=== PATIENT | female | born 1950 | race Caucasian/White ===

== ENCOUNTER 2017-01-29 07:30 | Inpatient (IN) | payer MEDICARE, OTHER ==
[~2017-01-29] VITALS: Ht 157.5 cm; Wt 72.6 kg
--- NOTE | ~2017-01-29 | HP ---
History And Physical [place] [id number] [facility] [place]. [address] NAME: THERESA PIERRE : 50 STATUS : ADM IN [facility]#: [id number] AGE: 66 ADM/REG DATE : 01/29/17 MR#: [id number] REPORT SERV DATE: 01/29/17 DICTATED BY: PETE MAIN JR. 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 She has done well, is being followed, but developed a recent episode of syncope that was fairly profound at home. She was transported with ambulance to the emergency room. She has been stable since, although her history is that of 24 hours of feeling sickly. Her drainage from her wounds have been monitored. She has had some drainage from the wounds bilaterally, which is more so on the right, which is the nonmalignant side. When she fell, she did have injury to her lower back and right hip, but evaluation to the emergency room has been negative. No cough noted. Her breast pain has been not significant and is being well controlled. PAST MEDICAL HISTORY/SERIOUS ILLNESSES: Diabetes, hypertension, underlying psychiatric disorder noted. PREVIOUS SURGERIES: Multiple superficial melanomas, arthroscopy of knee, previous back surgery, cholecystectomy, appendectomy. MEDICATIONS: See associated list. ALLERGIES: NONE OTHER THAN NAUSEA WITH TETRACYCLINE. FAMILY HISTORY: Noncontributory. SOCIAL HISTORY: Patient smokes and drinks. PHYSICAL EXAMINATION: GENERAL: Patient is well developed and obese. Patient in no distress. She is alert and oriented. VITAL SIGNS: The vital signs have been stable. CARDIORESPIRATORY: Regular rate and rhythm with somewhat of a tachycardia. Lungs are clear per evaluation by the emergency room physician. BREASTS: Bilateral breast exam shows reconstructive breast with minimal erythema of the inferior wound on the left. No significant erythema around the drain, although the drain on the left is producing considerable amount of serosanguineous fluid. On the right, there is separation of the wound inferiorly with drainage. Minimal drainage from the Federico-Bearden, but does perhaps have some more suspicious fluid within it. Minimal erythema even though the open wound is noted. ABDOMEN: Negative. EXTREMITIES AND BACK: Negative exam as per ER physician. History And Physical [address] [address] NAME: THERESA PIERRE : 50 STATUS : ADM IN [facility]#: [id number] AGE: 66 ADM/REG DATE : 01/29/17 MR#: [id number] REPORT SERV DATE: 01/29/17 DICTATED BY: PETE MAIN JR. DATE: 01/29/17 REPORT STATUS : Draft TRANSCRIBED BY: JAXSON DATE: 01/29/17 LABORATORY DATA: Elevated white count noted. IMPRESSION: Postoperative wound infection with probable sepsis and syncopal episode. PLAN: The patient will be admitted until wound and infection is under control. /JAXSON Pete Main Jr., M.D. / [id number] CC: Wander Owen Jr., M.D. Mark Brzezienski, M.D.
--- NOTE | ~2017-01-29 | OP ---
Record Of Operation [facility] [address] [place]. [address] NAME: THERESA PIERRE : 50 STATUS : ADM IN PAT#: [id number] AGE: 66 ADM/REG DATE : 01/29/17 MR#: [id number] REPORT SERV DATE: 02/03/17 DICTATED BY: FELI CHANG DATE: 02/03/17 REPORT STATUS : Draft TRANSCRIBED BY: MODAlessandro DATE: 02/03/17 DATE OF PROCEDURE: 02/01/2017 PREOPERATIVE DIAGNOSIS: Bilateral breast seroma, left infection. POSTOPERATIVE DIAGNOSIS: 1. Bilateral breast seroma, left infection. 2. History of breast cancer, surgical absence of the breast and diabetes. PROCEDURE: Bilateral I and D pain with excision and closure of superficial dehiscence right breast. INDICATIONS AND FINDINGS OF THE PROCEDURE: This 66-year-old, obese, diabetic female, status post bilateral mastectomies with immediate breast reconstruction. She has been doing well until about 72 hours ago, when she developed fever and ultimately sepsis emanating from a left breast collection. She is appropriate for the above-described operative intervention. DETAILS OF THE PROCEDURE: The patient was brought to the operating room. After adequate sedation was achieved, she was prepped and draped in usual sterile fashion for the above- described procedure. First on the right, the area of dehiscence approximately 7 cm in length, then at its widest point about 1 cm in width was excised to the level of the underlying well-perfused skin envelope tissue. She has been thoroughly irrigated with Hibiclens solution, and closed with Monocryl and nylon. Incision was then made in the lateral portion of the breast with a knife and dissection was then carried down to the level of the implant pocket with Bovie. The seroma was aspirated away. She was thoroughly irrigated with Hibiclens solution, and then a 15-Chinese drain was placed into the site. This was then closed with multiple layers of Monocryl. Our attention was then turned to the erythematous left breast. Incision was made. Dissection carried down laterally to the level of the underlying fat and then using Bovie cautery to the level of the seroma cavity. This was suctioned away, irrigated with Hibiclens solution, and anemic at 15-Chinese drain was placed. The drain was fixed. She was then closed in multiple layers of Monocryl and remanded to the recovery room in stable condition. All sponge and needle counts were correct. MB/MODL Feli Chang M.D. / [id number] CC: Wander Owen Jr., M.D.
[~2017-01-29 07:30] MED LIST: ALEVE220 MG PO; AT25 PO; CYMBALTA30 PO; INVOKANA100 MG PO; K500 PO; LEVOTHYROXIN50 MCG PO; MIRALAX POWDER1 PKT PO; MOMUD PO; NEUR100 PO; PERCOCET 7.5/321 TAB PO; SEROQUEL50 MG PO; VALIUM10 MG PO; VASOTEC5 PO; VICTOZA18 MG/3 ML SC
[2017-01-29 08:58] LABS: BASOPHILS 0.2 %; BASOPHILS ABSOLUTE 0.03 10/3/uL (0.0-0.16); EOSINOPHILS 0.5 %; EOSINOPHILS ABSOLUTE 0.09 10/3/uL (0.0-0.53); HEMOGLOBIN 12.4 g/dL (12.0-16.0); IMMATURE GRANULOCYTES 0.4 %; IMMATURE GRANULOCYTES ABSOLUTE 0.08 10/3/uL (0.0-0.11); LYMPHOCYTES 4.3 %; LYMPHOCYTES ABSOLUTE 0.78 10/3/uL (0.67-4.30); MEAN CORPUS HGB CONC 33.5 g/dL (32.0-36.0); MEAN CORPUSCULAR HEMOGLOB 29.4 pg (26.0-34.0); MEAN CORPUSCULAR VOLUME 87.7 fL (80-100); MEAN PLATELET VOLUME 8.3 fL (9.2-13.0); MONOCYTES 6.7 %; MONOCYTES ABSOLUTE 1.22 10/3/uL (0.21-1.20); NEUTROPHILS 87.9 %; NEUTROPHILS ABSOLUTE 15.94 10/3/uL (2.02-8.40); PLATELET COUNT 284 10/3/uL (150-400); RBC DISTRIBUTION WIDTH 13.2 % (12.0-16.0); RED CELL COUNT 4.22 10/6/uL (4.0-5.6)
[2017-01-29 08:59] LABS: MANUAL DIFF NO %; WHITE BLOOD CELLS 18.1 10/3/uL (4.5-10.5)
[2017-01-29 09:04] LABS: INTERNATIONAL NORMAL RATI 1.1 UNITS (-); PARTIAL THROMBO TIME 32.9 SEC (22.5-37.2); PROTIME (NOT ORD) 14.3 SEC (12.0-14.5)
[2017-01-29 09:14] LABS: BUN (BLOOD UREA NITROGEN) 11 MG/DL (6-23); CALCIUM, SERUM 8.3 MG/DL (8.5-10.4); CHEST PAIN PROFILE TAT 0 Hrs 21 Mins; CHLORIDE, SERUM 100 MMOL/L (96-112); CO2 (CARBON DIOXIDE) 26 MMOL/L (24-34); GFR AFRICAN AMERICAN 61 ML/MIN (>=60); GFR NON AFRICAN AMERICAN 52 ML/MIN (>=60); GLUCOSE, SERUM 322 MG/DL (60-99); SODIUM, SERUM 135 MMOL/L (135-148); TROPONIN I <0.02 NG/ML (<0.05)
[2017-01-29 09:23] LABS: ASCORBIC ACID (UR NOT ORDER) NEG (NEG); BILIRUBIN, URINE NEGATIVE (NEG); ER URINALYSIS TAT 0 Hrs 11 Mins; KETONE, URINE TRACE MG/DL (NEG); LEUKOCYTE ESTERASE(NOT OR NEG (NEG); NITRITE (URINE) NEG (NEG); WBC (NOT ORDERED) (RFLEX) 5 (0-5)
[2017-01-29] MEDS ORDERED: SYN.05 PO (09:58)
[2017-01-29] MEDS ORDERED: INVOKANA100 MG PO (09:58)
[2017-01-29] MEDS ORDERED: ENDOCET1 TA1 PO (09:59)
[2017-01-29] MEDS ORDERED: CYMBALTA30 PO (10:00)
[2017-01-29] MEDS ORDERED: SEROQUEL50 MG PO (10:00)
[2017-01-29] MEDS ORDERED: AT25 PO (10:00)
[2017-01-29] MEDS ORDERED: VALIUM10 MG PO (10:01)
[2017-01-29] MEDS ORDERED: VICTOZA18 MG/3 ML SC (10:01)
[2017-01-29] MEDS ORDERED: VASOTEC5 PO (10:02)
[2017-01-29] MEDS ORDERED: ASAB PO (10:03)
[2017-01-29] MEDS ORDERED: MIRALAX POWDER1 PKT PO (10:03)
[2017-01-29] MEDS ORDERED: UNISOM25 MG PO (10:04)
[2017-01-29 10:37] LABS: LACTATE 2.4 MMOL/L (0.3-2.4)
[2017-01-30 06:08] LABS: BASOPHILS 0.2 %; BASOPHILS ABSOLUTE 0.04 10/3/uL (0.0-0.16); EOSINOPHILS 0.6 %; EOSINOPHILS ABSOLUTE 0.11 10/3/uL (0.0-0.53); HEMOGLOBIN 10.3 g/dL (12.0-16.0); IMMATURE GRANULOCYTES 1.1 %; MANUAL DIFF NO %; MEAN CORPUS HGB CONC 33.2 g/dL (32.0-36.0); MEAN CORPUSCULAR HEMOGLOB 29.2 pg (26.0-34.0); MEAN CORPUSCULAR VOLUME 87.8 fL (80-100); MEAN PLATELET VOLUME 8.7 fL (9.2-13.0); MONOCYTES ABSOLUTE 1.58 10/3/uL (0.21-1.20); NEUTROPHILS 81.1 %; NEUTROPHILS ABSOLUTE 14.24 10/3/uL (2.02-8.40); PLATELET COUNT 273 10/3/uL (150-400); RBC DISTRIBUTION WIDTH 13.7 % (12.0-16.0); RED CELL COUNT 3.53 10/6/uL (4.0-5.6); WHITE BLOOD CELLS 17.6 10/3/uL (4.5-10.5)
[2017-01-30 06:26] LABS: BUN (BLOOD UREA NITROGEN) 17 MG/DL (6-23); CALCIUM, SERUM 7.7 MG/DL (8.5-10.4); CHLORIDE, SERUM 104 MMOL/L (96-112); CO2 (CARBON DIOXIDE) 24 MMOL/L (24-34); GFR AFRICAN AMERICAN 45 ML/MIN (>=60); GFR NON AFRICAN AMERICAN 39 ML/MIN (>=60); GLUCOSE, SERUM 152 MG/DL (60-99); PHOSPHORUS, SERUM 3.2 MG/DL (2.5-4.5); SODIUM, SERUM 138 MMOL/L (135-148)
[2017-01-31 06:36] LABS: BASOPHILS 0.3 %; BASOPHILS ABSOLUTE 0.04 10/3/uL (0.0-0.16); EOSINOPHILS 8.2 %; EOSINOPHILS ABSOLUTE 1.19 10/3/uL (0.0-0.53); HEMATOCRIT 29.5 % (36.0-48.0); HEMOGLOBIN 9.7 g/dL (12.0-16.0); IMMATURE GRANULOCYTES 0.5 %; IMMATURE GRANULOCYTES ABSOLUTE 0.07 10/3/uL (0.0-0.11); LYMPHOCYTES 8.4 %; LYMPHOCYTES ABSOLUTE 1.22 10/3/uL (0.67-4.30); MANUAL DIFF NO %; MEAN CORPUS HGB CONC 32.9 g/dL (32.0-36.0); MEAN CORPUSCULAR VOLUME 88.3 fL (80-100); MEAN PLATELET VOLUME 8.8 fL (9.2-13.0); MONOCYTES 5.6 %; MONOCYTES ABSOLUTE 0.81 10/3/uL (0.21-1.20); NEUTROPHILS ABSOLUTE 11.19 10/3/uL (2.02-8.40); PLATELET COUNT 268 10/3/uL (150-400); RBC DISTRIBUTION WIDTH 14.1 % (12.0-16.0); RED CELL COUNT 3.34 10/6/uL (4.0-5.6); WHITE BLOOD CELLS 14.5 10/3/uL (4.5-10.5)
[2017-01-31 06:58] LABS: ALBUMIN 2.2 G/DL (3.5-5.0); BUN (BLOOD UREA NITROGEN) 7 MG/DL (6-23); CALCIUM, SERUM 8.5 MG/DL (8.5-10.4); CHLORIDE, SERUM 110 MMOL/L (96-112); CO2 (CARBON DIOXIDE) 24 MMOL/L (24-34); CREATININE 0.78 MG/DL (0.55-1.02); GFR AFRICAN AMERICAN 92 ML/MIN (>=60); GFR NON AFRICAN AMERICAN 79 ML/MIN (>=60); GLUCOSE, SERUM 144 MG/DL (60-99); PHOSPHORUS, SERUM 1.7 MG/DL (2.5-4.5); POTASSIUM, SERUM 3.7 MMOL/L (3.5-5.3); SODIUM, SERUM 141 MMOL/L (135-148)
[2017-02-01 05:46] LABS: BASOPHILS 0.4 %; BASOPHILS ABSOLUTE 0.05 10/3/uL (0.0-0.16); EOSINOPHILS 9.9 %; EOSINOPHILS ABSOLUTE 1.24 10/3/uL (0.0-0.53); HEMATOCRIT 27.2 % (36.0-48.0); IMMATURE GRANULOCYTES 0.4 %; IMMATURE GRANULOCYTES ABSOLUTE 0.05 10/3/uL (0.0-0.11); LYMPHOCYTES 9.4 %; LYMPHOCYTES ABSOLUTE 1.18 10/3/uL (0.67-4.30); MEAN CORPUS HGB CONC 33.1 g/dL (32.0-36.0); MEAN CORPUSCULAR VOLUME 87.7 fL (80-100); MEAN PLATELET VOLUME 8.7 fL (9.2-13.0); MONOCYTES 6.3 %; MONOCYTES ABSOLUTE 0.79 10/3/uL (0.21-1.20); NEUTROPHILS 73.6 %; NEUTROPHILS ABSOLUTE 9.23 10/3/uL (2.02-8.40); PLATELET COUNT 290 10/3/uL (150-400); WHITE BLOOD CELLS 12.5 10/3/uL (4.5-10.5)
[2017-02-01 05:49] LABS: MANUAL DIFF NO %
[2017-02-01 06:01] LABS: BUN (BLOOD UREA NITROGEN) 6 MG/DL (6-23); CALCIUM, SERUM 7.8 MG/DL (8.5-10.4); CHLORIDE, SERUM 113 MMOL/L (96-112); CO2 (CARBON DIOXIDE) 23 MMOL/L (24-34); GFR AFRICAN AMERICAN 110 ML/MIN (>=60); GFR NON AFRICAN AMERICAN 95 ML/MIN (>=60); GLUCOSE, SERUM 132 MG/DL (60-99); POTASSIUM, SERUM 3.4 MMOL/L (3.5-5.3); SODIUM, SERUM 145 MMOL/L (135-148)
[2017-02-02 07:44] LABS: BASOPHILS 0.4 %; BASOPHILS ABSOLUTE 0.03 10/3/uL (0.0-0.16); EOSINOPHILS 7.2 %; EOSINOPHILS ABSOLUTE 0.59 10/3/uL (0.0-0.53); HEMATOCRIT 28.8 % (36.0-48.0); HEMOGLOBIN 9.5 g/dL (12.0-16.0); IMMATURE GRANULOCYTES 1.2 %; LYMPHOCYTES 12.3 %; LYMPHOCYTES ABSOLUTE 1.01 10/3/uL (0.67-4.30); MEAN CORPUSCULAR VOLUME 87.8 fL (80-100); MEAN PLATELET VOLUME 8.5 fL (9.2-13.0); MONOCYTES 10.9 %; PLATELET COUNT 271 10/3/uL (150-400); RBC DISTRIBUTION WIDTH 13.5 % (12.0-16.0); RED CELL COUNT 3.28 10/6/uL (4.0-5.6); WHITE BLOOD CELLS 8.2 10/3/uL (4.5-10.5)
[2017-02-02 07:46] LABS: MANUAL DIFF NO %
[2017-02-02 07:57] LABS: BUN (BLOOD UREA NITROGEN) 5 MG/DL (6-23); CALCIUM, SERUM 8.2 MG/DL (8.5-10.4); CHLORIDE, SERUM 108 MMOL/L (96-112); CO2 (CARBON DIOXIDE) 26 MMOL/L (24-34); CREATININE 0.65 MG/DL (0.55-1.02); GFR AFRICAN AMERICAN 107 ML/MIN (>=60); GFR NON AFRICAN AMERICAN 93 ML/MIN (>=60); GLUCOSE, SERUM 151 MG/DL (60-99); POTASSIUM, SERUM 3.7 MMOL/L (3.5-5.3); SODIUM, SERUM 140 MMOL/L (135-148)
[2017-02-03 05:03] LABS: BASOPHILS 0.7 %; BASOPHILS ABSOLUTE 0.04 10/3/uL (0.0-0.16); EOSINOPHILS 5.8 %; EOSINOPHILS ABSOLUTE 0.35 10/3/uL (0.0-0.53); HEMATOCRIT 28.6 % (36.0-48.0); HEMOGLOBIN 9.7 g/dL (12.0-16.0); IMMATURE GRANULOCYTES 4.1 %; IMMATURE GRANULOCYTES ABSOLUTE 0.25 10/3/uL (0.0-0.11); LYMPHOCYTES 18.2 %; MEAN CORPUS HGB CONC 33.9 g/dL (32.0-36.0); MEAN CORPUSCULAR HEMOGLOB 29.2 pg (26.0-34.0); MEAN CORPUSCULAR VOLUME 86.1 fL (80-100); MEAN PLATELET VOLUME 8.3 fL (9.2-13.0); MONOCYTES 14.3 %; MONOCYTES ABSOLUTE 0.86 10/3/uL (0.21-1.20); NEUTROPHILS 56.9 %; NEUTROPHILS ABSOLUTE 3.43 10/3/uL (2.02-8.40); PLATELET COUNT 307 10/3/uL (150-400); RBC DISTRIBUTION WIDTH 13.2 % (12.0-16.0); RED CELL COUNT 3.32 10/6/uL (4.0-5.6)
[2017-02-03 05:12] LABS: MANUAL DIFF NO %
[2017-02-03 05:20] LABS: ALBUMIN 1.9 G/DL (3.5-5.0); BUN (BLOOD UREA NITROGEN) 3 MG/DL (6-23); CALCIUM, SERUM 8.5 MG/DL (8.5-10.4); CHLORIDE, SERUM 106 MMOL/L (96-112); CO2 (CARBON DIOXIDE) 27 MMOL/L (24-34); CREATININE 0.61 MG/DL (0.55-1.02); GFR AFRICAN AMERICAN 109 ML/MIN (>=60); GFR NON AFRICAN AMERICAN 94 ML/MIN (>=60); GLUCOSE, SERUM 138 MG/DL (60-99); POTASSIUM, SERUM 3.1 MMOL/L (3.5-5.3); SODIUM, SERUM 144 MMOL/L (135-148)
[2017-02-03 05:23] LABS: PHOSPHORUS, SERUM 3.8 MG/DL (2.5-4.5)
[2017-02-03] MEDS ORDERED: LEVAQUIN5T PO (12:47)
[2017-02-03] MEDS ORDERED: BACDS PO (12:48)
[2017-02-03] MEDS ORDERED: PERCOCET 7.5/321 TAB PO (12:48)
== END 2017-02-03 17:13 | disposition home or self-care (01) | DRG 856 ==
LOC: ER 07:30 → 4SO 10:21
PROVIDERS: Emergency Medicine; Internal Medicine; Nurse Practitioner
PROC: 0J960ZZ Drainage of Chest Subcutaneous Tissue and Fascia, Open Approach (ICD-10-PCS; principal; 2017-01-29)
PROC: 0HQVXZZ (ICD-10-PCS; 2017-01-29)
DX: T81.4XXA Infection following a procedure, initial encounter (principal); A41.01 Sepsis due to Methicillin susceptible Staphylococcus aureus; N17.9 Acute kidney failure, unspecified; C50.912 Malignant neoplasm of unspecified site of left female breast; E86.0 Dehydration; E03.9 Hypothyroidism, unspecified; L76.34 Postprocedural seroma of skin and subcutaneous tissue following other procedure; Z90.13 Acquired absence of bilateral breasts and nipples; E11.9 Type 2 diabetes mellitus without complications; W18.30XA Fall on same level, unspecified, initial encounter; G47.33 Obstructive sleep apnea (adult) (pediatric)
CPT/HCPCS: 71010; 72100; 72170; 73552-RT; 80048; 80069; 81001; 82962; 83036; 83605; 83735; 84100; 84145; 84443; 84484; 85025; 85379; 85610; 85730; 87040; 87070; 87077; 87186; 87205; 94640; 96374; 96375; 99285; A9270-GY; J0690; J2250; J2270; J2370; J2405; J2543; J3010; J3370; P9045